=== PATIENT | male | born 1940 | race Caucasian/White ===

== ENCOUNTER 2018-07-17 19:52 | Emergency (ER) | payer OTHER ==
[~2018-07-17] VITALS: Ht 170.2 cm; Wt 81.7 kg
[2018-07-17] MEDS ORDERED: AMLODIPINE BESY10 MG PO (20:09)
[2018-07-17] MEDS ORDERED: CELEXA10 MG PO (20:09)
[2018-07-17] MEDS ORDERED: NORCO 5-325 TA1 EACH PO (20:10)
[2018-07-17] MEDS ORDERED: OMEPRAZOLE20 M2 PO (20:11)
[2018-07-17] MEDS ORDERED: LISINOPRIL20 MG PO (20:11)
[2018-07-17] MEDS ORDERED: ASPIR 8181 M1 PO (20:11)
[2018-07-17] MEDS ORDERED: KEFLEX500 M1 PO (20:24)
[2018-07-17 20:41] VITALS: BP 129/65
== END 2018-07-17 20:42 | disposition home or self-care (01) ==
LOC: M.ERS 19:52
DX: L03.114 Cellulitis of left upper limb (principal)

== ENCOUNTER → 2019-12-19 | Outpatient (CLI) | payer MEDICARE ==
[~2019-12-19] MED LIST: AMLODIPINE BESY10 MG PO; ASPIR 8181 M1 PO; CELEXA10 MG PO; KEFLEX500 M1 PO; LISINOPRIL20 MG PO; NORCO 5-325 TA1 EACH PO; OMEPRAZOLE20 M2 PO
== END ==
LOC: M.MRI 11:30
DX: S53.492A Other sprain of left elbow, initial encounter (principal); M19.022 Primary osteoarthritis, left elbow; R60.0 Localized edema; M25.422 Effusion, left elbow; M65.88 Other synovitis and tenosynovitis, other site; X58.XXXA Exposure to other specified factors, initial encounter; Y93.89 Activity, other specified; Y92.89 Other specified places as the place of occurrence of the external cause; Y99.8 Other external cause status